=== PATIENT | male | born 1965 | race Caucasian/White ===

== ENCOUNTER 2019-05-09 10:20 | Emergency (ER) | payer MEDICAID, OTHER ==
[~2019-05-09] VITALS: Ht 193 cm; Wt 140.0 kg
[2019-05-09] MEDS ORDERED: dexamethasone sod phosphate 10mg/ml inj IM STA (10:37)
[2019-05-09] MEDS ORDERED: orphenadrine citrate 60mg/2ml inj. IM ONE (10:40)
[2019-05-09] MEDS ORDERED: METH4TAB81 PO (10:54)
[2019-05-09] MEDS ORDERED: CYCL-394 PO (10:54)
[2019-05-09 11:19] VITALS: BP 134/97
== END 2019-05-09 11:21 | disposition home or self-care (01) ==
LOC: ER 10:20
DX: M54.16 Radiculopathy, lumbar region (principal); G89.29 Other chronic pain; Z79.899 Other long term (current) drug therapy
CPT/HCPCS: 96372; 99284; J1100; J2360

== ENCOUNTER 2019-05-11 09:18 | Emergency (ER) | payer MEDICAID, OTHER ==
[~2019-05-11] VITALS: Ht 193 cm; Wt 143.2 kg
[~2019-05-11 09:18] MED LIST: CYCL-394 PO; METH4TAB81 PO
[2019-05-11] MEDS ORDERED: HYDR-3965 PO (10:14)
[2019-05-11] MEDS ORDERED: ONDA8TAB6 PO (10:14)
[2019-05-11] MEDS ORDERED: ketorolac trometh inj. 60 MG/2 ML VIAL IM ONE (10:15)
[2019-05-11] MEDS ORDERED: HYDROcodone/acetaminophen 10/325mg tab PO ONE (10:15)
[2019-05-11] MEDS ORDERED: orphenadrine citrate 60mg/2ml inj. IM ONE (10:15)
[2019-05-11] MEDS ORDERED: ondansetron 4mg rapidly disintigrating tab PO ONE (10:15)
[2019-05-11] MEDS ORDERED: acetaminophen 325mg tablet PO ONE (10:15)
[2019-05-11 10:36] VITALS: BP 141/91
== END 2019-05-11 10:38 | disposition home or self-care (01) ==
LOC: ER 09:19
DX: M54.5 Low back pain (principal); G89.29 Other chronic pain; Z79.899 Other long term (current) drug therapy
CPT/HCPCS: 96372; 99284; J1885; J2360

== ENCOUNTER 2025-03-10 10:28 | Emergency (ER) | payer MEDICAID, OTHER ==
[~2025-03-10] VITALS: Ht 190.5 cm; Wt 128.2 kg
[~2025-03-10 10:28] MED LIST changes: -CYCL-394 PO; +ONDA8TAB6 PO
[2025-03-10 10:41] VITALS: BP 141/91; PULSE 86; RESP 20; TEMP 98.4; O2SAT 100
[2025-03-10] MEDS ORDERED: DOXY-460 PO (11:15)
[2025-03-10] MEDS ORDERED: TIRZ2.5P (11:15)
[2025-03-10] MEDS ORDERED: METF-1203 PO (11:15)
[2025-03-10] MEDS ORDERED: ENAL-79 PO (11:15)
[2025-03-10] MEDS ORDERED: BUDE10.2 (11:15)
[2025-03-10] MEDS: sulfamethoxazole/trimethoprim DS (800/160mg) tablet PO STA (12:24)
--- NOTE | 2025-03-10 12:29 | Physician Documentation ---
History of Present Illness ~ Chief Complaint: Bite-insect Stated Complaint: INSECT BITE Time Seen by MD: 11:08 Primary Medical Doctor: Jim Woodall HPI Patient is seen today with complaints of growing erythema or redness and swelling and pain in his right temporomandibular area in the preauricular area. Patient denies any specific injury or bite sensation. He states symptoms started yesterday and are worse now this morning. He denies any fevers or chills in his no other concern or complaint at this time. He sees states he is currently being treated with doxycycline for urinary tract infection for the last two days. Tetanus within 5 years?: No Medication Reconciliation Allergies: Coded Allergies: No Known Allergies (Unverified , 03/10/25) Scheduled Doxycycline Monohydrate (Doxycycline Monohydrate), 1 CAP PO BID, (Reported) Enalapril Maleate (Enalapril Maleate), 1 TAB PO DAILY, (Reported) Metformin HCl (Metformin HCl), 1 TAB PO TID, (Reported) Ondansetron Hcl (Zofran), 1 TAB PO Q8H Miscellaneous Medications Budesonide/Formoterol Fumarate (Symbicort 160-4.5 Mcg Inhaler), 2 PUFF, (Reported) Tirzepatide (Mounjaro), 22, (Reported) Discontinued Medications Methylprednisolone (Medrol Dosepak), 4 MG PO DAILY Discontinued Reason: patient no longer taking Past Medical History Past Medical History: Chronic Back Pain Review of Systems Constitutional: Denies: chills, fever, weakness Eyes: Denies: pain, blurred vision ENT: Denies: ear pain, nose pain, throat pain, mouth pain Respiratory: Denies: cough, shortness of breath Cardiovascular: Denies: chest pain, palpitations Gastrointestinal: Denies: abdominal pain, nausea, vomiting Genitourinary: Denies: burning, dysuria Male Genitalia: Denies: penile discharge, testicular pain Neurological: Denies: headache, dizziness Musculoskeletal: Denies: pain, swelling Integumentary: Denies: rash, lesions Allergic/Immunologic: Denies: hives, itching Hematologic/Lymphatic: Denies: no symptoms reported Psychiatric: Denies: depression, anxiety Physical Exam Vital Signs: Temperature: 98.4, Source: Temporal, Heart Rate: 86, Respiratory Rate: 20, BP: 141/91, Pulse Oximetry: 100, Weight: 128.200 Oxygen Flow Rate: 0 Physical Exam General: Awake and Alert, no acute distress. HEENT: Conjunctiva pink, Sclera clear, Mucus Membranes moist. Neck: Supple without masses and tenderness. Resp: Unlabored. Lungs clear to auscultation bilaterally. Heart: Regular Rate and rhythm, normal S1 and S2 without murmur, rub or gallop. Abdomen: Soft and non tender no organomegaly Extremities: No cyanosis,clubbing or edema. Skin: Patient on exam does have 3 cm diameter abscess with induration and erythema on the right side of patient's face in the preauricular area. Patient has no fluctuant mass appreciable. Progress Results/Orders Results/Orders Completed Orders - JAS LUNA PAC Sulfamethox/Trimetho. Ds Tab (Septra Ds (03/10/25 12:07) Vital Signs 03/10/25 10:41 Temp 98.4 Pulse 86 Resp 20 B/P (MAP) 141/91 Pulse Ox 100 O2 Flow Rate 0 Medical Decision Making Additional information obtaine: N/A Findings Patient is seen today with complaints of growing erythema or redness and swe lling and pain in his right temporomandibular area in the preauricular area. Patient denies any specific injury or bite sensation. He states symptoms started yesterday and are worse now this morning. He denies any fevers or chills in his no other concern or complaint at this time. He sees states he is currently being treated with doxycycline for urinary tract infection for the last two days. Patient was given dose of Bactrim DS one tab in the ED today by mouth. Patient was sent home with prescription for Bactrim DS one tab twice a day for 10 days along with warm compress two to 3 times a day. Patient will follow up with primary care provider in 2-5 days if no better as needed sooner. Return to ED with any worsening, concerning or changing symptoms. Differential Dx:Considerations: Include: Cellulitis, Hematoma, Punture wound, Urticaria Departure Disposition: 01 HOME / SELF CARE / HOMELESS Impression: Primary Impression: Cellulitis Qualified Codes: L03.211 - Cellulitis of face Condition: Fair Discharge Instructions: Cellulitis, Adult Additional Instructions: Patient was given dose of Bactrim DS one tab in the ED today by mouth. Patient was sent home with prescription for Bactrim DS one tab twice a day for 10 days along with warm compress two to 3 times a day. Patient will follow up with primary care provider in 2-5 days if no better as needed sooner. Return to ED with any worsening, concerning or changing symptoms. Referrals: NO PRIMARY CARE PROVIDER (PCP) Signature Scribe Signature: No scribe Attestation: No scribe JAS LUNA PAC Mar 10, 2025 12:29
== END 2025-03-10 12:30 | disposition home or self-care (01) ==
LOC: ER 10:29
DX: L03.211 Cellulitis of face (principal); W57.XXXA Bitten or stung by nonvenomous insect and other nonvenomous arthropods, initial encounter; Y93.89 Activity, other specified; Y92.89 Other specified places as the place of occurrence of the external cause; Y99.8 Other external cause status
CPT/HCPCS: 99283

== ENCOUNTER 2025-03-14 06:05 | Emergency (ER) | payer MEDICAID ==
[~2025-03-14] VITALS: Ht 190.5 cm; Wt 129.0 kg
[~2025-03-14 06:05] MED LIST changes: +BUDE10.2; +DOXY-460 PO; +ENAL-79 PO; +METF-1203 PO; -METH4TAB81 PO; +TIRZ2.5P
[2025-03-14 06:14] VITALS: TEMP 98.8
--- NOTE | 2025-03-14 08:27 | Physician Documentation ---
History of Present Illness ~ General Chief Complaint: Bite-insect Stated Complaint: SPIDER BITE Time Seen by MD: 08:08 Primary Medical Doctor: Rachana Dawn Source: patient (7), old records History of Present Illness Initial Comments Comes in for evaluation of a cellulitis on the face. He reports that it started five days ago, and he was seen here on 03/10, given a dose of Bactrim, and told that a prescription for antibiotics has been sent to his pharmacy. Patient reports it pharmacy never received the prescription, and I confirmed that it appears no prescription was sent on that visit. He does report that he has continuing redness in the same area, with some discomfort, a tiny bit of drainage just on arrival today, no fevers, no difficulty with swallowing, no extension of swelling beyond the preauricular area. Medication Reconciliation Allergies: Coded Allergies: No Known Allergies (Unverified , 03/14/25) Scheduled Doxycycline Monohydrate (Doxycycline Monohydrate), 1 CAP PO BID, (Reported) Enalapril Maleate (Enalapril Maleate), 1 TAB PO DAILY, (Reported) Metformin HCl (Metformin HCl), 1 TAB PO TID, (Reported) Ondansetron Hcl (Zofran), 1 TAB PO Q8H Miscellaneous Medications Budesonide/Formoterol Fumarate (Symbicort 160-4.5 Mcg Inhaler), 2 PUFF, (Reported) Tirzepatide (Mounjaro), 22, (Reported) Discontinued Medications Methylprednisolone (Medrol Dosepak), 4 MG PO DAILY Discontinued Reason: patient no longer taking Past Medical History Past Medical History: High Cholesterol, Asthma, Kidney Stones, Diabetes (Well controlled, A1c=6. BG 123 this am), Chronic Back Pain Smoking Status: Current every day smoker Alcohol Use: None Drug Use: none Review of Systems All Other Systems at this time: Reviewed and Negative Physical Exam Physical Exam Vital Signs: Temperature: 98.8, Source: Temporal, Heart Rate: 80, Respiratory Rate: 18, BP: 122/80, Pulse Oximetry: 98, Weight: 129.000 Oxygen Flow Rate: 0 Physical Exam General: Pt is awake, alert, oriented x4 in no acute distress and well appearing. Head: Normocephalic and atraumatic. Eyes: Conjunctiva normal. ENT: Mucous membranes moist. Handling secretions without difficulty. Neck: Supple. Chest: Clear to auscultation bilaterally, without rales, rhonchi, or wheezes. There is no accessory muscle use or retractions. Cardiac: Regular rate and rhythm without murmurs, gallops or rubs. Palpation of the chest wall is normal. Abd: Soft, nondistended, nontender, with normoactive bowel sounds. No guarding or rebound. Extremities: Within normal limits without cyanosis, clubbing, or edema. Skin: Traver, warm and dry with no significant rash appreciated. Over the temporomandibular area just anterior to the pinna is an area of well- circumscribed discrete erythema, not extending onto the pinna, not extending onto the face further, and not extending down into the neck area. There is over lying induration, but no fluctuance is appreciated. No swelling noted towards the pinna or the neck. Neuro: Cranial nerves II-XII grossly intact. The gait is normal. Progress Results/Orders Results/Orders Orders - NORM CHAVEZ MD Bactrim Ds Tablet (03/14/25 08:20) Vital Signs 03/14/25 03/14/25 06:14 07:39 Temp 98.8 Pulse 99 80 Resp 18 18 B/P (MAP) 137/74 122/80 (94) Pulse Ox 99 98 O2 Flow Rate 0 0 Medical Decision Making Additional information obtaine: old records Findings Differential Diagnosis Patient presenting with an area of presumed cellulitis, well localized on the face, failed to improve secondary to a prescription not being sent. At this time it is very well localized and circumscribed, not involving the pinna, no evidence for malignant otitis, not extended onto the neck or soft tissue planes. No evidence for sepsis. Because of its lack of fluctuance, and the well- circumscribed erythema differential includes cellulitis versus cystic structure, not amenable to incision and drainage at this time. We will reinstitute antibiotic therapy, patient to follow up closely on Sunday morning at his clinic for recheck, the area of erythema was demarcated with a permanent marker, and patient has strict instructions to return should he have any extension of redness or swelling, any difficulty with breathing or swallowing, any fevers, any other concerns. Departure Time of Disposition: 08:27 Disposition: HOME / SELF CARE / HOMELESS Impression: Primary Impression: Cellulitis Qualified Codes: L03.211 - Cellulitis of face Condition: Stable Discharge Instructions: Cellulitis, Adult Additional Instructions: Follow-up on Sunday morning at your walk-in clinic for recheck. Return immediately to the emergency department if you have extension of the redness or the swelling back toward your ear, further onto your face, or at all down onto your neck. Return if you have any fevers or feel generally unwell, or if any other concerns. The full antibiotic prescription has now been sent to your pharmacy. Referrals: NO PRIMARY CARE PROVIDER (PCP) Prescriptions Sulfamethoxazole/Trimethoprim (Bactrim Ds Tablet) 800 Mg-160 Mg Tablet 1 TAB PO Q12H for 10 Days, #20 TAB Prov: NORM CHAVEZ MD 03/14/25 Education Educated: Patient Educated regarding: diagnosis, treatment Signature Scribe Signature: Attestation: NORM CHAVEZ MD Mar 14, 2025 08:27
[2025-03-14] MEDS ORDERED: SULF1TAB49 PO (08:29)
[2025-03-14 08:47] VITALS: BP 116/82; PULSE 68; RESP 18; O2SAT 98
[2025-03-14] MEDS: sulfamethoxazole/trimethoprim DS (800/160mg) tablet PO ONE (08:50)
== END 2025-03-14 08:55 | disposition home or self-care (01) ==
LOC: ER 06:06
DX: L03.211 Cellulitis of face (principal); G89.29 Other chronic pain; F17.200 Nicotine dependence, unspecified, uncomplicated; E78.00 Pure hypercholesterolemia, unspecified; E11.9 Type 2 diabetes mellitus without complications; Z87.442 Personal history of urinary calculi; Z79.84 Long term (current) use of oral hypoglycemic drugs; Z79.899 Other long term (current) drug therapy
CPT/HCPCS: 99283